=== PATIENT | male | born 1975 | race Caucasian/White ===

== ENCOUNTER 2023-03-05 08:57 | Emergency (ER) | payer OTHER ==
[~2023-03-05] VITALS: Ht 170.2 cm; Wt 79.5 kg
[2023-03-05] MEDS ORDERED: normal saline 1000ML IV soln IVB ONE (09:35)
[2023-03-05] MEDS ORDERED: LORazepam 1 MG tablet PO ONE ×2 (09:50→18:30)
[2023-03-05] MEDS ORDERED: charcoal/sorbitol 25GM/120ML oral SUSPension PO ONE (09:50)
[2023-03-05 10:35] LABS: BASOPHILS % (AUTO) 0.5 % (0-1); EOSINOPHILS % (AUTO) 0.6 % (0-6); HEMATOCRIT 50.5 % (42.0-52.0); HEMOGLOBIN 16.8 g/dl (14.0-17.9); LYMPHOCYTES # (AUTO) 1.3 X10'3 (1.1-4.8); LYMPHOCYTES % (AUTO) 17.5 % (21-51); MEAN CORPUSCULAR HGB CONC 33.3 g/dL (33.0-36.5); MEAN CORPUSCULAR VOLUME 84.3 FL (78-98); MEAN PLATELET VOLUME 8.8 FL (7.4-10.4); MONOCYTES # (AUTO) 0.7 X10'3 (0-0.9); MONOCYTES % (AUTO) 9.4 % (2-12); NEUTROPHILS # (AUTO) 5.5 X10'3 (1.8-7.7); PLATELET COUNT 209 X10'3 (140-440); RED BLOOD COUNT 5.98 X10'6 (4.70-6.10); RED CELL DISTRIBUTION WIDTH 18.2 % (11.5-14.5); WHITE BLOOD COUNT 7.7 X10'3 (4.5-11.0)
--- NOTE | 2023-03-05 10:42 | NUR ---
this RN called poison control at 1038 to notify of pt OD on welbutrin 150mg (50 pills) crushed and snorted per pt statement. spoke with poison control . recommended for 24 hours observation. supportive measures. no charcoal. if agitated, seizing given benzos to control. get a blood test for aspirin, tylenol and alcohol. any ekg changes bicarb for prolonged qrs and electrolytes for ST Elevation.
[2023-03-05 10:48] LABS: APTT 31 SECONDS (22-32); PROTHROMBIN TIME 10.7 SECONDS (9.0-12.0)
[2023-03-05 11:19] LABS: ALANINE AMINOTRANSFERASE 97 U/L (12-78); ALBUMIN 4.4 G/DL (3.4-5.0); ALKALINE PHOSPHATASE 95 IU/L (46-116); ANION GAP 9 (8-16); ASPARTATE AMINO TRANSFERASE 52 U/L (10-37); BILIRUBIN,TOTAL 0.7 MG/DL (0.1-1.0); BLOOD UREA NITROGEN 24 MG/DL (7-18); CALCIUM 9.8 MG/DL (8.5-10.1); CHLORIDE 102 MMOL/L (99-107); CREATININE 0.89 MG/DL (0.60-1.10); GLUCOSE 94 MG/DL (70-104); POTASSIUM 4.2 MMOL/L (3.5-5.1); SODIUM 138 MMOL/L (135-145); TOTAL PROTEIN 8.7 G/DL (6.4-8.2); eCRCL 98 ML/MIN; eGFR > 90 ML/MIN
[2023-03-05 11:28] LABS: PHOSPHORUS 3.6 MG/DL (2.3-4.5); SALICYLATE 0.9 MG/DL (4.0-20.0); THYROID STIMULATING HORMONE 2.16 ulU/ml (0.34-4.50)
[2023-03-05 11:29] LABS: ACETAMINOPHEN < 2.0 UG/ML (10-30); ETHANOL < 10 MG/DL (<10)
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
--- NOTE | 2023-03-05 11:40 | NUR ---
UA OBTAINED AND SENT TO LAB.
[2023-03-05 11:53] LABS: ANISOCYTOSIS 2+; GIANT PLATELET FEW; LARGE PLATELETS FEW; PLATELET ESTIMATE NORMAL; TOTAL CELLS COUNTED 100
[2023-03-05 11:54] LABS: TOXIC GRANULATION 1+
[2023-03-05] MEDS ORDERED: NO HOME MEDS (12:13)
[2023-03-05 12:20] LABS: BILIRUBIN,URINE NEGATIVE (Neg); CLARITY,URINE SLIGHTLY CLOUDY (Clear); COLOR,URINE YELLOW (Yellow); GLUCOSE, URINE NEGATIVE (Neg); KETONES,URINE NEGATIVE (Neg); LEUKOCYTE ESTERASE ,URINE NEGATIVE (Neg); NITRITES, URINE NEGATIVE (Neg); OCCULT BLOOD,URINE NEGATIVE (Neg); PH,URINE 7.5 (4.8-8.0); PROTEIN,URINE TRACE mg/dl (Neg); UROBILINOGEN,URINE 0.2 E.U/dL (0.2-1.0)
[2023-03-05 12:21] LABS: UA COLLECTION TYPE NON-SPECIFIED
[2023-03-05 12:36] LABS: MUCUS STRANDS MANY /LPF (Neg); SQUAMOUS EPITHELIAL CELL,UR FEW /LPF (FEW)
[2023-03-05 12:42] LABS: BACTERIA,URINE 1+ /HPF (Neg); HYALINE CASTS 0-3 /LPF (NEGATIVE); RBC,URINE 0-2 /HPF (0-2); WBC,URINE 0-4 /HPF (0-4)
[2023-03-05 12:56] LABS: URINE AMPHETAMINE SCREEN NEGATIVE (Neg); URINE BARBITUATE SCREEN NEGATIVE (Neg); URINE BENZODIAZEPINES SCREEN NEGATIVE (Neg); URINE CANNABINOID SCREEN NEGATIVE (Neg); URINE COCAINE SCREEN NEGATIVE (Neg); URINE OPIATE SCREEN NEGATIVE (Neg); URINE PHENCYCLIDINE SCREEN NEGATIVE (Neg)
--- NOTE | 2023-03-05 14:28 | NUR ---
pt was able to ambulate to the restroom with only a standby assist
--- NOTE | 2023-03-05 15:05 | NUR ---
followed up with poison control. no further instructions given. continue supportive care for patient for 24 hours.
--- NOTE | 2023-03-05 17:48 | NUR ---
PT HAS NO COMPLAINTS OF N/V. SLIGHTLY DIZZY WITH SOME RINGING IN HIS EARS. GIVEN A MEAL TRAY, ONLY ATE A LITTLE AND ASKED FOR SOME JUICE INSTEAD OF MILK. PENDING COVID RESULTS TO TRANSFER PT.
--- NOTE | 2023-03-05 18:09 | NUR ---
CALLED TO GIVE REPORT TO [facility]. THEY WILL CALL BACK WHEN AVAILABLE.
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
--- NOTE | 2023-03-05 19:18 | NUR ---
Received one time order for 650 mg Tylenol Tab PO and Loperimide Cap PO at 19:15 from ED PA. Client is eating dinner tray.
[2023-03-05] MEDS ORDERED: loperamide 2mg capsule PO ONE (19:20)
[2023-03-05] MEDS ORDERED: acetaminophen 325mg tablet PO ONE (19:20)
[2023-03-05] MEDS: quetiapine 100mg tablet PO SCH (21:00)
--- NOTE | 2023-03-05 21:00 | NUR ---
Client has been restless. He made 'jerking movements' and fidgeting. He pulled a small piece of lint off of his scrubs and asked to Tech to look at it. The Tech responded "It looks like lint from the blanket." Client questioned "Are you sure? I hope its not crabs or bugs or something." Tech gave client a fresh set of scrubs. He has been talking to 'unseen' others. Client refused PRN Ativan and scheduled Seroquel. He took Tylenol for ZULETA and Loperamide for diarrhea.
--- NOTE | 2023-03-05 22:39 | NUR ---
Resting with eyes closed on stomach. Resp even and unlabored.
--- NOTE | 2023-03-06 00:25 | NUR ---
Client ambulated to restroom. He stated "I stepped in urine in the bathroom." Client said he "cleaned off his feet". He was given a new pair of socks. A set of Vital Signs was obrained r/t ingestion error. Client is irritable.
--- NOTE | 2023-03-06 03:05 | NUR ---
Client is sleeping on his left side. Resp even and unlabored.
--- NOTE | 2023-03-06 03:40 | NUR ---
Client is awake and eating a sandwich with juice.
--- NOTE | 2023-03-06 05:03 | NUR ---
Resting on abdomen. Resp even and unlabored.
[2023-03-06] MEDS ORDERED: ATOR20TA PO (05:07)
--- NOTE | 2023-03-06 05:45 | NUR ---
Ambulated to restroom.
--- NOTE | 2023-03-06 06:56 | NUR ---
Patient awake and agitated. Patient appears to feel persecuted by staff. Continue to monitor.
--- NOTE | 2023-03-06 08:20 | NUR ---
Patient eating breakfast. Patient still acting paranoid and asked RN about the syringes she had. RN explains to patient that she didn't have any syringes. Patient states "Okay." Continue to monitor.
--- NOTE | 2023-03-06 10:14 | NUR ---
Pt ambulatory to BR, steady gait. No distress observed. Continue to monitor.
--- NOTE | 2023-03-06 10:25 | NUR ---
Vanesa TURNER, evaluating patient. No distress observed. Continue to monitor.
--- NOTE | 2023-03-06 11:17 | NUR ---
Patient on a 5150 Hold for DTS. Patient was advised by YUE Alexis. No distress observed. Continue to monitor.
--- NOTE | 2023-03-06 11:31 | NUR ---
discontinued iv from pt's R forearm
--- NOTE | 2023-03-06 12:17 | NUR ---
Patient eating lunch. No distress observed. Continue to monitor.
--- NOTE | 2023-03-06 13:11 | NUR ---
breaking nurse, pt sleeping meds all up to date
--- NOTE | 2023-03-06 15:03 | NUR ---
Patient sleeping on his right side and is lightly snoring. No distress observed. Continue to monitor.
--- NOTE | 2023-03-06 17:07 | NUR ---
Patient watching T.V. and eating dinner. No distress observed. Continue to monitor.
--- NOTE | 2023-03-06 18:30 | NUR ---
Patient is resting quietly in bed. He watches television. Patient speaks in a normal rate, rhythm, and tone. Indirect eye contact. He is cooperative.
[2023-03-06] MEDS: quetiapine 100mg tablet PO SCH (20:58)
--- NOTE | 2023-03-06 20:59 | NUR ---
Patient refuses his Seroquel. He states it gives him "restless leg syndrome." Patient is cooperative. He tells this headline writer that he thinks he will be able to sleep aok.
--- NOTE | 2023-03-06 21:00 | NUR ---
Patient is well oriented. S/I, no plan. Patient states his six months ago. He has felt suicidal since that time. The patient denies H/I. He denies audible hallucinations. Patient states he saw a shadow like figure on the curtain, it mimicked his own movements.
--- NOTE | 2023-03-06 23:24 | NUR ---
Patient sleeping quietly in a prone position. In view from nurses station.
--- NOTE | 2023-03-07 00:40 | NUR ---
Patient is sleeping quietly on his right side.
--- NOTE | 2023-03-07 07:02 | NUR ---
patient in room pacing, no complications noted at this time.
--- NOTE | 2023-03-07 08:03 | NUR ---
patient is sitting on side of bed watching tv, no distress noted at this time.
--- NOTE | 2023-03-07 09:04 | NUR ---
patient is in room, sitting up in bed watching tv with no distress noted.
--- NOTE | 2023-03-07 10:00 | NUR ---
patient is awake and sitting up in bed watching tv. ate breakfast, went to bathroom and then returned to room. no needs at this time.
--- NOTE | 2023-03-07 11:03 | NUR ---
patient is in room, no needs at this time. Resting quietly while in bed watching TV.
--- NOTE | 2023-03-07 11:46 | NUR ---
gopi from [facility] advises that the provider from [facility] is requesting a new cmp and cbc, orders were entered
--- NOTE | 2023-03-07 12:01 | NUR ---
patient is Alert and awake, sitting in bed resting quietly, watching TV. no needs noted at this time. no distress noted.
[2023-03-07 12:56] LABS: BASOPHILS # (AUTO) 0.1 X10'3 (0-0.2); BASOPHILS % (AUTO) 0.9 % (0-1); EOSINOPHILS # (AUTO) 0.2 X10'3 (0-0.9); EOSINOPHILS % (AUTO) 2.8 % (0-6); HEMATOCRIT 47.6 % (42.0-52.0); HEMOGLOBIN 15.7 g/dl (14.0-17.9); LYMPHOCYTES # (AUTO) 1.9 X10'3 (1.1-4.8); LYMPHOCYTES % (AUTO) 27.5 % (21-51); MEAN CORPUSCULAR HEMOGLOBIN 28.2 PG (27.0-31.0); MEAN CORPUSCULAR VOLUME 85.5 FL (78-98); MEAN PLATELET VOLUME 9.3 FL (7.4-10.4); MONOCYTES # (AUTO) 0.7 X10'3 (0-0.9); MONOCYTES % (AUTO) 10.3 % (2-12); NEUTROPHILS # (AUTO) 4.1 X10'3 (1.8-7.7); NEUTROPHILS % (AUTO) 58.5 % (42-75); PLATELET COUNT 201 X10'3 (140-440); RED BLOOD COUNT 5.56 X10'6 (4.70-6.10); RED CELL DISTRIBUTION WIDTH 17.2 % (11.5-14.5); WHITE BLOOD COUNT 7.1 X10'3 (4.5-11.0)
--- NOTE | 2023-03-07 12:56 | NUR ---
patient is in bed resting quietly watching tv, no distress noted at this time.
[2023-03-07 13:04] LABS: ALANINE AMINOTRANSFERASE 84 U/L (12-78); ALBUMIN 3.5 G/DL (3.4-5.0); ALBUMIN/GLOBULIN RATIO 0.9 (1.1-1.5); ALKALINE PHOSPHATASE 81 IU/L (46-116); ANION GAP 7 (8-16); ASPARTATE AMINO TRANSFERASE 37 U/L (10-37); BILIRUBIN,TOTAL 0.5 MG/DL (0.1-1.0); BLOOD UREA NITROGEN 21 MG/DL (7-18); BUN/CREATININE RATIO 22.1 (10.0-20.0); CHLORIDE 99 MMOL/L (99-107); CREATININE 0.95 MG/DL (0.60-1.10); GLUCOSE 102 MG/DL (70-104); POTASSIUM 4.1 MMOL/L (3.5-5.1); SODIUM 136 MMOL/L (135-145); TOTAL CARBON DIOXIDE 30.3 MMOL/L (24-32); TOTAL PROTEIN 7.4 G/DL (6.4-8.2); eCRCL 92 ML/MIN; eGFR 86 ML/MIN
--- NOTE | 2023-03-07 14:00 | NUR ---
patient in bed resting quietly, no distress noted.
--- NOTE | 2023-03-07 15:00 | NUR ---
patient in room, laying in bed resting quietly, watching TV with no distress noted.
--- NOTE | 2023-03-07 15:07 | NUR ---
gopi from [facility] called and said that patient was accepted to a facility in [facility], transport will be here at 715 am 03/08/23 to pick patient up and they need a more recent covid test to be done. fax number is [phone]
--- NOTE | 2023-03-07 16:00 | NUR ---
Patient in bed resting quietly at this time with no distress noted.
--- NOTE | 2023-03-07 17:11 | NUR ---
patient in room watching tv resting quietly with no distress noted. goip from [facility] stated another covid test needed to be done before patient pickup tomorrow at 0715
--- NOTE | 2023-03-07 19:04 | NUR ---
PT placed in Bed 22 EDOF. Requesting TV and more food.
[2023-03-07] MEDS: quetiapine 100mg tablet PO SCH (20:56)
--- NOTE | 2023-03-08 04:43 | NUR ---
Patient awoke, ambulated to bathroom. Upon return, this sports writer completed another Covid swab. Re: earlier swab was not run as lab personnel assumed it was an unnecessary duplite. This sports writer spoke to lab personnel and explained that receiving hospital ([facility], is requiring another negative covid test prior to transport.
--- NOTE | 2023-03-08 04:46 | NUR ---
[facility]: [phone]
--- NOTE | 2023-03-08 04:48 | NUR ---
Transport out around 0730 hours to [facility].
--- NOTE | 2023-03-08 06:09 | NUR ---
Negative Covid results have been faxed to [facility].
--- NOTE | 2023-03-08 06:11 | NUR ---
Patient is awake and cooperative. No distress. Patient advised of pending transfer to [facility] around 0730 hours.
[2023-03-08 08:53] VITALS: BP 125/81; PULSE 78; RESP 16; TEMP 97.8; O2SAT 98
== END 2023-03-08 07:46 ==
LOC: ER 08:58
DX: T43.292A Poisoning by other antidepressants, intentional self-harm, initial encounter (principal); R45.851 Suicidal ideations; Z20.822 Contact with and (suspected) exposure to COVID-19; Y92.89 Other specified places as the place of occurrence of the external cause
CPT/HCPCS: 36415; 71045; 80053; 80305; 80320; 80329; 81001; 84100; 84443; 84484; 85007; 85025; 85610; 85730; 87811; 93005; 99285